=== PATIENT | female | born 1960 | race African-American/Black ===

== ENCOUNTER 2019-07-18 05:07 | Inpatient (IN) | payer BC, MEDICAID ==
[~2019-07-18] VITALS: Ht 162.6 cm; Wt 56.8 kg
[2019-07-18 08:34] LABS: BASOPHILS % 0.8 % (0.0-2.0); EOSINOPHILS % 0.2 % (0.0-5.0); HEMATOCRIT. 29.2 % (36.0-48.0); HEMOGLOBIN. 8.9 g/dL (12.0-16.0); LYMPHOCYTES % 9.3 % (20.0-50.0); MEAN CORPUSCULAR HEMOGLOBIN 23.1 pg (28.0-32.0); MEAN CORPUSCULAR VOLUME 75.6 fL (81.0-99.0); MEAN PLATELET VOLUME 8.5 fl (7.4-10.4); MONOCYTES % 2.9 % (2.0-8.0); NEUTROPHILS % 86.8 % (40.0-76.0); PLATELET 364 x1000/uL (130-400); RED BLOOD CELL COUNT 3.86 mill/uL (4.2-5.4); RED CELL DISTRIBUTION WIDTH 21.5 % (11.6-14.6)
[2019-07-18 08:41] LABS: CHLORIDE 103 mEq/L (98-107)
[2019-07-18 09:20] LABS: INR 1.1; PARTIAL THROMBOPLASTIN TIME 24.7 sec (23.4-31.0); PROTHROMBIN TIME 11.4 sec (9.6-11.0)
[2019-07-18] MEDS ORDERED: FENTANYL CITRATE/PF 50MCG/ML 2ML VIAL IV ONE (09:30)
[2019-07-18] MEDS ORDERED: FUROSEMIDE 40MG/4ML VIAL IVP ONE (09:30)
[2019-07-18] MEDS ORDERED: LEVOFLOXACIN 500MG PREMIX 100 ML IV ONE (11:15)
[2019-07-18] MEDS ORDERED: METRONIDAZOLE 500 MG PREMIX 100 ML IV ONE (11:15)
[2019-07-18] MEDS ORDERED: MORPHINE SULFATE 2 MG/ML CPJ (NOT FOR IM USE) IV PRN ×2 (11:45→17:30)
[2019-07-18] MEDS: DIPHENHYDRAMINE 50MG/ML VIAL IV PRN ×2 (11:56→22:28)
[2019-07-18] MEDS ORDERED: ACETAMINOPHEN 325MG TABLET PO PRN (13:00)
[2019-07-18] MEDS ORDERED: ONDANSETRON HCL 4MG/2ML INJ IV PRN (13:00)
[2019-07-18] MEDS ORDERED: DOCUSATE SODIUM 250MG CAPSULE PO SCH (13:00)
[2019-07-18] MEDS ORDERED: FUROSEMIDE 40MG/4ML VIAL IVP SCH (13:00)
[2019-07-18] MEDS: FERROUS SULFATE 325MG TABLET PO SCH ×2 (14:13→18:42)
[2019-07-18] MEDS: DOCUSATE SODIUM 250MG CAPSULE PO SCH ×2 (16:30→18:42)
[2019-07-18] MEDS: HYDROCODONE/ACETAMINOPHEN 10/325MG TABLET PO PRN (17:21)
[2019-07-18] MEDS ORDERED: FURO-151 PO (17:39)
[2019-07-18] MEDS ORDERED: OMEP20TA15 PO (17:42)
[2019-07-18] MEDS ORDERED: COR12 PO (17:42)
[2019-07-18] MEDS ORDERED: FERR-71 MT (17:42)
[2019-07-18 17:44] VITALS: BP 117/82
[2019-07-18] MEDS: SORBITOL 70% SOLN 30ML PO NR ×2 (17:44→18:41)
[2019-07-18 17:58] VITALS: BP 117/82
[2019-07-18] MEDS: FUROSEMIDE 40MG/4ML VIAL IVP SCH (18:42)
[2019-07-18] MEDS ORDERED: POTASSIUM CHLORIDE 20MEQ TABLET SR PO NR (19:00)
[2019-07-18] MEDS: CARVEDILOL 12.5MG TABLET PO SCH (20:21)
[2019-07-18] MEDS: KETOROLAC 30MG/ML VIAL IV PRN (20:22)
[2019-07-18 20:34] VITALS: BP 123/80
[2019-07-19] VITALS: BP 120/89
[2019-07-19 00:19] LABS: HEMATOCRIT 29.6 % (36.0-48.0)
[2019-07-19] MEDS: METRONIDAZOLE 500 MG PREMIX 100 ML IV SCH ×4 (01:14→22:40)
[2019-07-19] MEDS: KETOROLAC 30MG/ML VIAL IV PRN ×2 (02:41→10:24)
[2019-07-19 04:00] VITALS: BP 131/77
[2019-07-19] MEDS: FUROSEMIDE 40MG/4ML VIAL IVP SCH (06:05)
[2019-07-19] MEDS: OMEPRAZOLE 20MG CAPSULE EXTENDED RELEASE PO SCH (06:05)
[2019-07-19] MEDS: FERROUS SULFATE 325MG TABLET PO SCH ×4 (06:19→17:15)
[2019-07-19 07:36] LABS: BASOPHILS % 2.1 % (0.0-2.0); EOSINOPHILS % 3.2 % (0.0-5.0); HEMATOCRIT. 27.6 % (36.0-48.0); HEMOGLOBIN. 8.6 g/dL (12.0-16.0); LYMPHOCYTES % 30.4 % (20.0-50.0); MEAN CORPUSCULAR HEMOGLOBIN 23.4 pg (28.0-32.0); MEAN CORPUSCULAR VOLUME 75.4 fL (81.0-99.0); MEAN PLATELET VOLUME 8.2 fl (7.4-10.4); MONOCYTES % 10.3 % (2.0-8.0); PLATELET 267 x1000/uL (130-400); RED BLOOD CELL COUNT 3.67 mill/uL (4.2-5.4); RED CELL DISTRIBUTION WIDTH 21.1 % (11.6-14.6)
[2019-07-19 08:00] VITALS: BP 121/86
[2019-07-19] MEDS: LOSARTAN POTASSIUM 50 MG TABLET PO SCH (08:32)
[2019-07-19] MEDS: DOCUSATE SODIUM 250MG CAPSULE PO SCH ×2 (08:32→08:40)
[2019-07-19] MEDS: CARVEDILOL 12.5MG TABLET PO SCH ×2 (08:32→21:00)
[2019-07-19] MEDS: HYDROCODONE/ACETAMINOPHEN 10/325MG TABLET PO PRN ×3 (08:33→21:37)
[2019-07-19] MEDS ORDERED: LEVOFLOXACIN 500MG PREMIX 100 ML IV SCH (09:00)
[2019-07-19] MEDS: IPRATROPIUM/ALBUTEROL 0.5-3(2.5)MG/3ML NEB HHN SCH (10:00)
[2019-07-19] MEDS ORDERED: POTASSIUM CHLORIDE 20MEQ TABLET SR PO NR (11:00)
[2019-07-19] MEDS ORDERED: NA PHOS,M-B/NA PHOS,DI-BA ENEMA 118ML PR PRN (11:30)
[2019-07-19 12:00] VITALS: BP 121/86
[2019-07-19] MEDS: PHENYLEPHRINE/SHK LV/MO/PET,WH RECTAL OINT 57GM PR SCH ×2 (15:19→18:00)
[2019-07-19 16:37] LABS: HEMATOCRIT 29.1 % (36.0-48.0); HEMOGLOBIN 8.7 g/dL (12.0-16.0)
[2019-07-19 17:02] VITALS: BP 112/83
[2019-07-19 20:00] VITALS: BP 103/57
[2019-07-20] VITALS: BP 110/77
[2019-07-20 04:00] VITALS: BP 118/81
[2019-07-20] MEDS: KETOROLAC 30MG/ML VIAL IV PRN ×2 (04:20→20:06)
[2019-07-20] MEDS: PHENYLEPHRINE/SHK LV/MO/PET,WH RECTAL OINT 57GM PR SCH ×4 (06:00→18:00)
[2019-07-20] MEDS: OMEPRAZOLE 20MG CAPSULE EXTENDED RELEASE PO SCH (06:27)
[2019-07-20] MEDS: METRONIDAZOLE 500 MG PREMIX 100 ML IV SCH ×3 (06:27→21:21)
[2019-07-20 08:00] VITALS: BP 118/90
[2019-07-20 08:09] LABS: BASOPHILS % 1.6 % (0.0-2.0); EOSINOPHILS % 5.8 % (0.0-5.0); HEMATOCRIT. 28.8 % (36.0-48.0); HEMOGLOBIN. 8.8 g/dL (12.0-16.0); LYMPHOCYTES % 21.9 % (20.0-50.0); MEAN CORPUSCULAR VOLUME 75.7 fL (81.0-99.0); MEAN PLATELET VOLUME 8.1 fl (7.4-10.4); MONOCYTES % 14.7 % (2.0-8.0); PLATELET 245 x1000/uL (130-400); RED CELL DISTRIBUTION WIDTH 21.2 % (11.6-14.6)
[2019-07-20] MEDS: LOSARTAN POTASSIUM 50 MG TABLET PO SCH (08:40)
[2019-07-20] MEDS: DOCUSATE SODIUM 250MG CAPSULE PO SCH (08:40)
[2019-07-20] MEDS: HYDROCODONE/ACETAMINOPHEN 10/325MG TABLET PO PRN ×2 (08:42→17:39)
[2019-07-20] MEDS: CARVEDILOL 12.5MG TABLET PO SCH ×2 (08:43→20:07)
[2019-07-20] MEDS: LEVOFLOXACIN 250MG PREMIX 50 ML IV SCH (09:00)
[2019-07-20 12:00] VITALS: BP 98/69
[2019-07-20] MEDS: SORBITOL 70% SOLN 30ML PO SCH ×2 (14:19→16:49)
[2019-07-20] MEDS: IPRATROPIUM/ALBUTEROL 0.5-3(2.5)MG/3ML NEB HHN SCH ×2 (15:53→20:48)
[2019-07-20 16:00] VITALS: BP 100/66
[2019-07-20 20:00] VITALS: BP 113/71
[2019-07-20] MEDS ORDERED: SORBITOL 70% SOLN 30ML PO SCH (20:00)
[2019-07-21] VITALS: BP 101/66
[2019-07-21] MEDS: PHENYLEPHRINE/SHK LV/MO/PET,WH RECTAL OINT 57GM PR SCH ×3 (00:45→06:30)
[2019-07-21] MEDS: HYDROCODONE/ACETAMINOPHEN 10/325MG TABLET PO PRN ×2 (01:47→08:33)
[2019-07-21] MEDS: IPRATROPIUM/ALBUTEROL 0.5-3(2.5)MG/3ML NEB HHN SCH ×3 (02:11→14:35)
[2019-07-21 04:00] VITALS: BP 113/82
[2019-07-21] MEDS ORDERED: SORBITOL 70% SOLN 30ML PO SCH (06:00)
[2019-07-21] MEDS: OMEPRAZOLE 20MG CAPSULE EXTENDED RELEASE PO SCH (06:30)
[2019-07-21] MEDS: METRONIDAZOLE 500 MG PREMIX 100 ML IV SCH (06:30)
[2019-07-21 07:09] LABS: PARTIAL THROMBOPLASTIN TIME 25.7 sec (23.4-31.0); PROTHROMBIN TIME 11.3 sec (9.6-11.0)
[2019-07-21 07:16] LABS: BASOPHILS % 1.1 % (0.0-2.0); EOSINOPHILS % 3.4 % (0.0-5.0); HEMATOCRIT. 29.2 % (36.0-48.0); HEMOGLOBIN. 8.8 g/dL (12.0-16.0); LYMPHOCYTES % 21.6 % (20.0-50.0); MEAN CORPUSCULAR HEMOGLOBIN 23.2 pg (28.0-32.0); MEAN CORPUSCULAR VOLUME 76.9 fL (81.0-99.0); MEAN PLATELET VOLUME 8.3 fl (7.4-10.4); NEUTROPHILS % 61.9 % (40.0-76.0); PLATELET 223 x1000/uL (130-400); RED BLOOD CELL COUNT 3.79 mill/uL (4.2-5.4); RED CELL DISTRIBUTION WIDTH 21.1 % (11.6-14.6)
[2019-07-21 07:35] LABS: CHLORIDE 111 mEq/L (98-107)
[2019-07-21 08:00] VITALS: BP 125/87
[2019-07-21] MEDS ORDERED: NA PHOS,M-B/NA PHOS,DI-BA ENEMA 118ML PR NR (08:00)
[2019-07-21] MEDS: LEVOFLOXACIN 250MG PREMIX 50 ML IV SCH (08:34)
[2019-07-21] MEDS: LOSARTAN POTASSIUM 50 MG TABLET PO SCH (08:34)
[2019-07-21] MEDS: CARVEDILOL 12.5MG TABLET PO SCH (08:35)
[2019-07-21] MEDS: FERROUS SULFATE 325MG TABLET PO SCH (08:35)
[2019-07-21] MEDS: DOCUSATE SODIUM 250MG CAPSULE PO SCH (09:00)
[2019-07-21 10:58] VITALS: BP 78/118
[2019-07-21] MEDS ORDERED: METRONIDAZOLE 500MG TABLET PO SCH (14:00)
[2019-07-22] MEDS ORDERED: LEVOFLOXACIN 250MG TABLET PO SCH (11:00)
== END 2019-07-21 11:20 | disposition home or self-care (01) | DRG 244 ==
LOC: ER 05:07 → 5WST 09:34 → ENRESERV 15:43
PROVIDERS: ADMIT Internal Medicine; ATTEND Internal Medicine
DX: K57.33 Diverticulitis of large intestine without perforation or abscess with bleeding (principal); I50.23 Acute on chronic systolic (congestive) heart failure; N17.9 Acute kidney failure, unspecified; I27.20 Pulmonary hypertension, unspecified; E44.1 Mild protein-calorie malnutrition; I08.1 Rheumatic disorders of both mitral and tricuspid valves; I42.9 Cardiomyopathy, unspecified; J43.9 Emphysema, unspecified; D50.0 Iron deficiency anemia secondary to blood loss (chronic); I11.0 Hypertensive heart disease with heart failure; E11.9 Type 2 diabetes mellitus without complications; E78.5 Hyperlipidemia, unspecified; F14.90 Cocaine use, unspecified, uncomplicated; E87.6 Hypokalemia; K56.41 Fecal impaction; K64.9 Unspecified hemorrhoids; K57.30 Diverticulosis of large intestine without perforation or abscess without bleeding; Z85.038 Personal history of other malignant neoplasm of large intestine; I25.2 Old myocardial infarction; Z87.891 Personal history of nicotine dependence; Z90.49 Acquired absence of other specified parts of digestive tract; Z76.5 Malingerer [conscious simulation]; Z95.810 Presence of automatic (implantable) cardiac defibrillator; Z88.5 Allergy status to narcotic agent; Z91.011 Allergy to milk products; Z88.8 Allergy status to other drugs, medicaments and biological substances; Z68.21 Body mass index [BMI] 21.0-21.9, adult
CPT/HCPCS: 36415; 71045; 71250; 74176; 80048; 80053; 82378; 83735; 83880; 84132; 84484; 85014; 85018; 85025; 85379; 86850; 86900; 93005; 93970; 96365; 99285; J1200; J1885; J1940; J1956; J2270; J2405; J3010; J3490

== ENCOUNTER 2019-07-25 03:09 | Inpatient (IN) | payer MEDICAID ==
[~2019-07-25] VITALS: Ht 167.6 cm; Wt 72.6 kg
[~2019-07-25 03:09] MED LIST: COR12 PO; FERR-71 MT; FURO-151 PO; OMEP20TA15 PO
[2019-07-25] MEDS ORDERED: METHYLPREDNISOLONE SOD SUCC 125 MG/2 ML VIAL IV STA (03:29)
[2019-07-25] MEDS ORDERED: ONDANSETRON HCL 4MG/2ML INJ IV STA (03:29)
[2019-07-25] MEDS ORDERED: MAGNESIUM 2 G PREMIX 50 ML IV ONE (03:30)
[2019-07-25] MEDS ORDERED: ALBUTEROL 6.7GM HFA INHALER ORI ONE (03:30)
[2019-07-25 04:14] LABS: BG CARBOXYHEMOGLOBIN 1.5 % (0.5-1.5); BG DEOXYHEMOGLOBIN 7.6 % (0.0-5.0); BG FRACTION INSPIRED OXYGEN 40; BG HCO3 ACT 23.9 mmol/L (22.0-26.0); BG METHEMOGLOBIN 0.2 % (0.0-1.5); BG OXYGEN SATURATION 92.3 % (92.0-98.5); BG OXYHEMOGLOBIN 90.7 % (94.0-97.0); BG PCO2 35.9 mmHg (35.0-45.0); BG PH 7.441 (7.350-7.450); BG SAMPLE SITE LEFT RADIAL; BG TOTAL HEMOGLOBIN 10.4 g/dL (12.0-18.0); BG VENT MODE NASAL CANNULA
[2019-07-25 04:45] LABS: BASOPHILS % 0.5 % (0.0-2.0); EOSINOPHILS % 0.3 % (0.0-5.0); HEMATOCRIT. 35.9 % (36.0-48.0); HEMOGLOBIN. 10.9 g/dL (12.0-16.0); LYMPHOCYTES % 14.9 % (20.0-50.0); MEAN CORPUSCULAR HEMOGLOBIN 23.4 pg (28.0-32.0); MEAN CORPUSCULAR VOLUME 76.8 fL (81.0-99.0); MEAN PLATELET VOLUME 9.1 fl (7.4-10.4); MONOCYTES % 13.9 % (2.0-8.0); NEUTROPHILS % 70.4 % (40.0-76.0); PLATELET 383 x1000/uL (130-400); RED BLOOD CELL COUNT 4.68 mill/uL (4.2-5.4)
[2019-07-25 04:52] LABS: CHLORIDE 108 mEq/L (98-107)
[2019-07-25 07:05] LABS: PLATELET ESTIMATE NORMAL
[2019-07-25] MEDS ORDERED: ACETAMINOPHEN 325MG TABLET PO PRN (08:45)
[2019-07-25] MEDS ORDERED: METOCLOPRAMIDE HCL 10MG/2ML VIAL IV PRN (08:45)
[2019-07-25] MEDS ORDERED: HYDROCODONE/ACETAMINOPHEN 10/325MG TABLET PO PRN (08:45)
[2019-07-25] MEDS ORDERED: AZITHROMYCIN 500 MG TABLET PO SCH (09:30)
[2019-07-25] MEDS ORDERED: CEFTRIAXONE 1 G PREMIX 50 ML IV SCH (10:00)
[2019-07-25 12:00] VITALS: BP 116/75
[2019-07-25] MEDS ORDERED: OMEPRAZOLE 20MG CAPSULE EXTENDED RELEASE PO SCH (13:00)
[2019-07-25] MEDS ORDERED: FUROSEMIDE 40MG/4ML VIAL IVP SCH (13:00)
[2019-07-25] MEDS ORDERED: DOCUSATE SODIUM 250MG CAPSULE PO SCH (13:00)
[2019-07-25] MEDS ORDERED: LOSARTAN POTASSIUM 25 MG TABLET PO SCH (13:00)
[2019-07-25] MEDS ORDERED: OXYCODONE HCL/ACETAMINOPHEN 5/325MG TABLET PO PRN (14:15)
[2019-07-25 16:00] VITALS: BP 133/88
[2019-07-25 17:04] VITALS: BP 133/88
[2019-07-26] MEDS ORDERED: CEFTRIAXONE 1 G PREMIX 50 ML IV SCH ×2 (09:00→10:00)
== END 2019-07-25 17:33 | disposition home or self-care (01) | DRG 720 ==
LOC: ER 03:09 → 7WST 05:16 → EDBEDREQ 05:19 → EDBEDREQTM 05:19 → ENRESERV 11:02
PROVIDERS: ADMIT Internal Medicine; ATTEND Internal Medicine
DX: A41.89 Other specified sepsis (principal); U07.1 COVID-19; J96.01 Acute respiratory failure with hypoxia; I50.23 Acute on chronic systolic (congestive) heart failure; E87.8 Other disorders of electrolyte and fluid balance, not elsewhere classified; E11.9 Type 2 diabetes mellitus without complications; D64.9 Anemia, unspecified; I08.1 Rheumatic disorders of both mitral and tricuspid valves; I42.9 Cardiomyopathy, unspecified; T59.891A Toxic effect of other specified gases, fumes and vapors, accidental (unintentional), initial encounter; K64.9 Unspecified hemorrhoids; J43.9 Emphysema, unspecified; E78.5 Hyperlipidemia, unspecified; F17.210 Nicotine dependence, cigarettes, uncomplicated; F11.10 Opioid abuse, uncomplicated; F14.10 Cocaine abuse, uncomplicated; I16.0 Hypertensive urgency; I11.0 Hypertensive heart disease with heart failure; D72.810 Lymphocytopenia; J68.0 Bronchitis and pneumonitis due to chemicals, gases, fumes and vapors; Y92.89 Other specified places as the place of occurrence of the external cause; Z76.5 Malingerer [conscious simulation]; Z85.038 Personal history of other malignant neoplasm of large intestine; Z95.810 Presence of automatic (implantable) cardiac defibrillator; Z88.5 Allergy status to narcotic agent; Z88.8 Allergy status to other drugs, medicaments and biological substances; Z91.011 Allergy to milk products; I25.2 Old myocardial infarction; Z90.49 Acquired absence of other specified parts of digestive tract
CPT/HCPCS: 36415; 36600; 71045; 80053; 82375; 82805; 83605; 83880; 84484; 85025; 87635; 93005; 94640; 99291; J0696; J1940; J2405; J2930; J3475

== ENCOUNTER 2019-10-18 08:00 | Inpatient (IN) | payer BC, MEDICAID ==
[~2019-10-18] VITALS: Ht 165.1 cm; Wt 56.4 kg
[2019-10-18] MEDS ORDERED: MORPHINE SULFATE 4 MG/ML CPJ (NOT FOR IM USE) IV ONE (09:00)
[2019-10-18 09:26] LABS: CHLORIDE 103 mEq/L (98-107)
[2019-10-18 09:31] LABS: HEMATOCRIT. 29.2 % (36.0-48.0); HEMOGLOBIN. 8.7 g/dL (12.0-16.0); MEAN CORPUSCULAR HEMOGLOBIN 21.4 pg (28.0-32.0); MEAN CORPUSCULAR VOLUME 71.5 fL (81.0-99.0); MEAN PLATELET VOLUME 7.4 fl (7.4-10.4); PLATELET 468 x1000/uL (130-400); RED BLOOD CELL COUNT 4.08 mill/uL (4.2-5.4); RED CELL DISTRIBUTION WIDTH 27.9 % (11.6-14.6)
[2019-10-18] MEDS ORDERED: FUROSEMIDE 20MG/2ML VIAL IVP ONE (10:00)
[2019-10-18 10:20] LABS: NUCLEATED RED BLOOD CELLS 7 /100 WBC; PLATELET ESTIMATE INCREASED
[2019-10-18] MEDS ORDERED: MORPHINE SULFATE 2 MG/ML CPJ (NOT FOR IM USE) IV PRN (13:15)
[2019-10-18] MEDS ORDERED: ACETAMINOPHEN 325MG TABLET PO PRN (15:30)
[2019-10-18] MEDS ORDERED: IPRATROPIUM/ALBUTEROL 0.5-3(2.5)MG/3ML NEB HHN PRN (15:30)
[2019-10-18] MEDS: FUROSEMIDE 40MG/4ML VIAL IVP SCH ×2 (17:15→20:25)
[2019-10-18] MEDS: HYDROCODONE/ACETAMINOPHEN 10/325MG TABLET PO PRN (19:25)
[2019-10-18] MEDS: POTASSIUM CHLORIDE 20MEQ TABLET SR PO SCH (20:26)
[2019-10-18] MEDS: LOSARTAN POTASSIUM 25 MG TABLET PO SCH (20:26)
[2019-10-18] MEDS: DOCUSATE SODIUM 250MG CAPSULE PO SCH (20:26)
[2019-10-18] MEDS: FERROUS SULFATE 325MG TABLET PO SCH (20:27)
[2019-10-18] MEDS: CARVEDILOL 3.125 MG TABLET PO SCH (21:00)
[2019-10-18] MEDS: OMEPRAZOLE 20MG CAPSULE EXTENDED RELEASE PO SCH (21:00)
[2019-10-18] MEDS ORDERED: IOHEXOL-350 100 ML BOTTLE ONE (22:00)
[2019-10-18] MEDS: METHYLPREDNISOLONE SOD SUCC 40 MG/ML VIAL IV SCH (22:36)
[2019-10-19] MEDS: HYDROCODONE/ACETAMINOPHEN 10/325MG TABLET PO PRN ×3 (04:25→19:00)
[2019-10-19] MEDS ORDERED: HYDROCODONE/ACETAMINOPHEN 10/325MG TABLET ONE ×2 (04:26→09:15)
[2019-10-19 05:03] LABS: CHLORIDE 106 mEq/L (98-107)
[2019-10-19 05:26] LABS: HEMATOCRIT. 30.3 % (36.0-48.0); HEMOGLOBIN. 9.1 g/dL (12.0-16.0); MEAN CORPUSCULAR HEMOGLOBIN 21.6 pg (28.0-32.0); MEAN CORPUSCULAR VOLUME 71.8 fL (81.0-99.0); MEAN PLATELET VOLUME 7.4 fl (7.4-10.4); PLATELET 428 x1000/uL (130-400); RED BLOOD CELL COUNT 4.22 mill/uL (4.2-5.4); RED CELL DISTRIBUTION WIDTH 28.3 % (11.6-14.6)
[2019-10-19] MEDS: METHYLPREDNISOLONE SOD SUCC 40 MG/ML VIAL IV SCH ×3 (06:30→22:40)
[2019-10-19] MEDS: FUROSEMIDE 40MG/4ML VIAL IVP SCH ×2 (07:15→16:19)
[2019-10-19] MEDS: OMEPRAZOLE 20MG CAPSULE EXTENDED RELEASE PO SCH ×2 (07:50→20:32)
[2019-10-19] MEDS: CARVEDILOL 3.125 MG TABLET PO SCH ×2 (09:00→20:30)
[2019-10-19] MEDS: LOSARTAN POTASSIUM 25 MG TABLET PO SCH (09:00)
[2019-10-19] MEDS: DOCUSATE SODIUM 250MG CAPSULE PO SCH (09:00)
[2019-10-19] MEDS: POTASSIUM CHLORIDE 20MEQ TABLET SR PO SCH (09:00)
[2019-10-19] MEDS: FERROUS SULFATE 325MG TABLET PO SCH ×5 (09:00→18:10)
[2019-10-19] MEDS ORDERED: FAMOTIDINE 20MG/2ML VIAL IV ONE (09:12)
[2019-10-19] MEDS ORDERED: METHYLPREDNISOLONE SOD SUCC 40 MG/ML VIAL ONE (09:13)
[2019-10-19] MEDS ORDERED: ONDANSETRON HCL 4MG/2ML INJ ONE (09:20)
[2019-10-19] MEDS: ONDANSETRON HCL 4MG/2ML INJ IV PRN (09:23)
[2019-10-19] MEDS ORDERED: DOCUSATE SODIUM 100MG CAPSULE ONE (09:54)
[2019-10-19 12:20] VITALS: BP_SYST 106; BP_SYST 115; BP_DIAS 87
[2019-10-19 13:53] LABS: NUCLEATED RED BLOOD CELLS 5 /100 WBC; PLATELET ESTIMATE INCREASED
[2019-10-19 16:00] VITALS: BP 106/77
[2019-10-19] MEDS ORDERED: OXYC15TA82 PO (16:28)
[2019-10-19 20:26] VITALS: BP 109/73
[2019-10-19 21:50] VITALS: BP 120/81
[2019-10-20] VITALS: BP 114/82
[2019-10-20] MEDS: HYDROCODONE/ACETAMINOPHEN 10/325MG TABLET PO PRN ×2 (01:10→09:21)
[2019-10-20 04:00] VITALS: BP 116/80
[2019-10-20 06:44] LABS: HEMATOCRIT. 28.3 % (36.0-48.0); HEMOGLOBIN. 8.5 g/dL (12.0-16.0); MEAN CORPUSCULAR HEMOGLOBIN 21.2 pg (28.0-32.0); MEAN CORPUSCULAR VOLUME 71.1 fL (81.0-99.0); MEAN PLATELET VOLUME 7.5 fl (7.4-10.4); PLATELET 340 x1000/uL (130-400); RED BLOOD CELL COUNT 3.98 mill/uL (4.2-5.4)
[2019-10-20] MEDS: OMEPRAZOLE 20MG CAPSULE EXTENDED RELEASE PO SCH (06:55)
[2019-10-20] MEDS: METHYLPREDNISOLONE SOD SUCC 40 MG/ML VIAL IV SCH ×2 (06:56→13:26)
[2019-10-20 07:10] LABS: CHLORIDE 104 mEq/L (98-107)
[2019-10-20] MEDS: FERROUS SULFATE 325MG TABLET PO SCH ×2 (07:15→11:55)
[2019-10-20] MEDS: FUROSEMIDE 40MG/4ML VIAL IVP SCH (07:15)
[2019-10-20] MEDS: CARVEDILOL 3.125 MG TABLET PO SCH (09:00)
[2019-10-20] MEDS: DOCUSATE SODIUM 250MG CAPSULE PO SCH (09:00)
[2019-10-20] MEDS: LOSARTAN POTASSIUM 25 MG TABLET PO SCH (09:00)
[2019-10-20] MEDS: POTASSIUM CHLORIDE 20MEQ TABLET SR PO SCH (09:00)
[2019-10-20] MEDS: ONDANSETRON HCL 4MG/2ML INJ IV PRN (09:14)
[2019-10-20 11:20] VITALS: BP 122/93
[2019-10-20] MEDS ORDERED: HYDROCODONE/ACETAMINOPHEN 10/325MG TABLET PO PRN (11:30)
[2019-10-20 13:26] VITALS: BP 127/92
[2019-10-21 10:58] LABS: NUCLEATED RED BLOOD CELLS 2 /100 WBC; PLATELET ESTIMATE NORMAL
== END 2019-10-20 15:15 | disposition home or self-care (01) | DRG 139 ==
LOC: ER 08:00 → 7WST 12:27 → EDBEDREQTM 12:32 → EDBEDREQ 12:32 → CANRESERV 21:05 → ENRESERV 21:05 → EDBEDREQ 22:57 → ENRESERV 10-19 11:20 → 5WST 10-19 21:55
PROVIDERS: ADMIT Internal Medicine; ATTEND Internal Medicine
DX: J18.9 Pneumonia, unspecified organism (principal); I11.0 Hypertensive heart disease with heart failure; I50.23 Acute on chronic systolic (congestive) heart failure; E44.0 Moderate protein-calorie malnutrition; E87.6 Hypokalemia; K64.9 Unspecified hemorrhoids; D64.9 Anemia, unspecified; G89.4 Chronic pain syndrome; D72.810 Lymphocytopenia; F14.10 Cocaine abuse, uncomplicated; I42.9 Cardiomyopathy, unspecified; F41.9 Anxiety disorder, unspecified; Z20.828 Contact with and (suspected) exposure to other viral communicable diseases; J96.00 Acute respiratory failure, unspecified whether with hypoxia or hypercapnia; I08.1 Rheumatic disorders of both mitral and tricuspid valves; I25.10 Atherosclerotic heart disease of native coronary artery without angina pectoris; J43.9 Emphysema, unspecified; E11.9 Type 2 diabetes mellitus without complications; K57.92 Diverticulitis of intestine, part unspecified, without perforation or abscess without bleeding; Z76.5 Malingerer [conscious simulation]; Z95.810 Presence of automatic (implantable) cardiac defibrillator; Z88.8 Allergy status to other drugs, medicaments and biological substances; Z91.011 Allergy to milk products; Z85.038 Personal history of other malignant neoplasm of large intestine; Z79.899 Other long term (current) drug therapy; Z68.20 Body mass index [BMI] 20.0-20.9, adult
CPT/HCPCS: 36415; 71045; 71275; 80048; 80053; 83880; 84484; 85025; 93005; 94640; 99285; J1940; J2270; J2405; J2920; J3490; Q9967; U0003-CS

== ENCOUNTER 2019-10-27 17:43 | Inpatient (IN) | payer MEDICAID ==
[~2019-10-27] VITALS: Ht 154.9 cm; Wt 56.2 kg
[~2019-10-27 17:43] MED LIST changes: +OXYC15TA82 PO
[2019-10-27] MEDS ORDERED: MORPHINE SULFATE 4 MG/ML CPJ (NOT FOR IM USE) IV STA (18:26)
[2019-10-27] MEDS ORDERED: ONDANSETRON HCL 4MG/2ML INJ IV STA (18:26)
[2019-10-27 18:48] LABS: MEAN CORPUSCULAR HEMOGLOBIN 20.6 pg (28.0-32.0); MEAN CORPUSCULAR VOLUME 71.2 fL (81.0-99.0); PLATELET 181 x1000/uL (130-400); RED BLOOD CELL COUNT 4.36 mill/uL (4.2-5.4); RED CELL DISTRIBUTION WIDTH 28.1 % (11.6-14.6)
[2019-10-27 18:55] LABS: CHLORIDE 99 mEq/L (98-107)
[2019-10-27 19:05] LABS: PLATELET ESTIMATE NORMAL
[2019-10-27] MEDS ORDERED: POTASSIUM CHLORIDE 20MEQ TABLET SR PO ONE (19:15)
[2019-10-27] MEDS ORDERED: KCL 20MEQ/100ML PREMIX 100 ML IV ONE (19:15)
[2019-10-27] MEDS ORDERED: MORPHINE SULFATE 4 MG/ML CPJ (NOT FOR IM USE) IV ONE (20:45)
[2019-10-27] MEDS ORDERED: IOHEXOL-350 100 ML BOTTLE ONE (22:57)
[2019-10-28] MEDS ORDERED: HYDROCODONE/ACETAMINOPHEN 5/325MG TABLET PO PRN (07:00)
[2019-10-28 08:23] VITALS: BP 119/92
[2019-10-28] MEDS ORDERED: ONDANSETRON HCL 4MG/2ML INJ IV PRN (08:45)
[2019-10-28] MEDS ORDERED: POTASSIUM CHLORIDE 20MEQ TABLET SR PO NR (08:45)
[2019-10-28] MEDS ORDERED: DOCUSATE SODIUM 250MG CAPSULE PO SCH (09:00)
[2019-10-28] MEDS ORDERED: CARVEDILOL 6.25 MG TABLET PO SCH (09:00)
[2019-10-28] MEDS ORDERED: FUROSEMIDE 40MG/4ML VIAL IVP SCH (09:00)
[2019-10-28] MEDS ORDERED: LOSARTAN POTASSIUM 25 MG TABLET PO SCH (09:00)
[2019-10-28] MEDS ORDERED: ENOXAPARIN 60MG/0.6ML SYR SUBCUT SCH (09:00)
[2019-10-28] MEDS ORDERED: FERROUS SULFATE 325MG TABLET PO SCH (12:00)
== END 2019-10-28 09:45 | disposition left against medical advice (07) | DRG 134 ==
LOC: ER 17:51 → MICUSO 21:08
PROVIDERS: ADMIT Internal Medicine; ATTEND Internal Medicine
DX: I26.99 Other pulmonary embolism without acute cor pulmonale (principal); E87.6 Hypokalemia; I11.0 Hypertensive heart disease with heart failure; I25.10 Atherosclerotic heart disease of native coronary artery without angina pectoris; J44.9 Chronic obstructive pulmonary disease, unspecified; Z53.29 Procedure and treatment not carried out because of patient's decision for other reasons; F41.9 Anxiety disorder, unspecified; Z91.011 Allergy to milk products; Z91.09 Other allergy status, other than to drugs and biological substances; I25.2 Old myocardial infarction; Z85.038 Personal history of other malignant neoplasm of large intestine; Z79.899 Other long term (current) drug therapy; I50.23 Acute on chronic systolic (congestive) heart failure; E44.0 Moderate protein-calorie malnutrition; Z95.810 Presence of automatic (implantable) cardiac defibrillator; Z76.5 Malingerer [conscious simulation]
CPT/HCPCS: 36415; 71275; 80053; 83880; 84484; 85025; 93005; 93971; 96374; 99285; J2270; J2405; J3480; Q9967